=== PATIENT | male | born 1995 | race Two or more races ===

== ENCOUNTER → 2017-06-05 | Day surgery (SDC) | payer SELFPAY, OTHER ==
--- NOTE | ~2017-06-05 | OR ---
Unit #: [id number] #: [id number] Patient: ROSALES OLIVEIRA [id number] [address] [place], [place] [address] [id number] O MR#: [id number] NAME: ROSALES OLIVEIRA ROOM: Date of Procedure: 06/05/2017 Admission Date: 06/05/2017 Surgeon: Chay Lomax M.D. : 1995 Attending Physician: Chay Lomax M.D. OPERATIVE REPORT PREOPERATIVE DIAGNOSIS Enlarging subcutaneous mass, left eyebrow. POSTOPERATIVE DIAGNOSIS Enlarging subcutaneous mass, left eyebrow. PROCEDURE PERFORMED Excision of enlarging subcutaneous mass, left eyebrow 1 cm with layered closure. ANESTHESIA Versed 2 mg, Demerol 50 mg each IV push in divided dosages with continuous cardiac and O2 saturation monitoring, 1% Xylocaine plain local anesthesia. FINDINGS Consistent with sebaceous cyst. SPECIMENS Sent to pathology. COMPLICATIONS None apparent. CONDITION The patient tolerated the procedure well. INDICATIONS FOR PROCEDURE The patient is a 21-year-old male, who has enlarging subcutaneous mass of the left eyebrow. He presents at this time for excision for pathologic diagnosis and treatment. DESCRIPTION OF PROCEDURE After obtaining informed consent, the patient was brought to the operating room and after adequate conscious sedation, had the area prepped sterilely and then anesthetized with 1% Xylocaine plain local anesthesia. An elliptical incision was made over the lesion. It was taken down to the level of the lesion with a tenotomy scissors. The cyst was sharply dissected free circumferentially staying right on the surface of the cyst and that was sent to pathology. It was consistent with a sebaceous cyst. The wound was irrigated. Hemostasis was obtained with the Bovie. The deep tissues were reapproximated with an interrupted 5-0 Monocryl and the skin was closed with a 5-0 Monocryl subcuticular stitch. Benzoin and Unit #: [id number] #: [id number] Patient: ROSALES OLIVEIRA Steri-Strips were applied over the wound in an occlusive manner. Needle counts, sponge counts, and instrument counts were all correct as reported by the scrub nurse x2. The patient went from the operative room to the recovery room in stable condition. Dictated by... Jamie Serrano/trino TD: 06/05/2017 12:55 JOB #: [id number] CC: [facility] DamonPMitchell OPERATIVE REPORT Page 1 of 1 X Chay Lomax MD PROCEDURE OPERATIVE NOTE
== END | disposition home or self-care (01) ==
LOC: CSUR 06:16
DX: D23.39 Other benign neoplasm of skin of other parts of face (principal)
CPT/HCPCS: 88305; J2175; J2250